=== PATIENT | male | born 1965 | race Caucasian/White ===

== ENCOUNTER 2017-08-26 02:55 | Emergency (ER) | payer OTHER ==
[~2017-08-26] VITALS: Ht 170.2 cm; Wt 63.5 kg
[2017-08-26 02:58] VITALS: BP 158/76
[2017-08-26 03:07] VITALS: BP 158/76
--- NOTE | 2017-08-26 03:09 | NUR ---
PATIENT PRESENTS TO ED WITH LUMP IN HIS CHEST FELL TODAY, COUGH , ETOH PT DENIES N/V/D; SKIN IS PINK/WARM/DRY; AAOX4 WITH EVEN AND STEADY GAIT; LUNGS CLEAR BL; HR EVEN AND REGULAR; PT DENIES ANY FEVER, SOB, OR COUGH AT THIS TIME; PATIENT STATES PAIN OF 8/10 AT THIS TIME; VSS; PATIENT POSITIONED FOR COMFORT; HOB ELEVATED; BEDRAILS UP X2; BED DOWN. ER MD MADE AWARE OF PT STATUS.
--- NOTE | 2017-08-26 03:15 | NUR ---
PATIENT LEFT WITHOUT BEING SEEN BY DR. MCCLENDON. NO FURTHER CARE PROVIDED FOR PATIENT.
== END 2017-08-26 03:15 | disposition left against medical advice (07) ==
LOC: MED 02:55
DX: R07.89 Other chest pain (principal); Z53.21 Procedure and treatment not carried out due to patient leaving prior to being seen by health care provider

== ENCOUNTER 2018-09-24 21:14 | Emergency (ER) | payer OTHER ==
[~2018-09-24] VITALS: Ht 170.2 cm; Wt 64.0 kg
[2018-09-24 21:19] VITALS: BP 167/103
--- NOTE | 2018-09-24 22:39 | NUR ---
Patient ambulated to bed 5. RN evaluating patient at bedside.
--- NOTE | 2018-09-24 22:40 | NUR ---
PT IS A 53 Y/O MALE WHO PRESENTS TO THE ED FOR MED REFILL. PT STATES THAT HE JUST GOT ON ASSISTED AND IS REQUIRING MED RX. PT REPORTS METOPROLOL, CLONIDINE AND GABAPENTIN. PT DENIES PAIN AT THIS TIME. PT DENIES CP, SOB, N/V/D. PT AWAKE AND ALERT, RR EVEN/UNLABORED. PT REPOSITIONED FOR COMFORT, BED IN LOWEST POSITION. ER MD DR. MCCLENDON NOTIFIED. WILL CONTINUE TO MONITOR. PMH---HTN
--- NOTE | 2018-09-24 22:50 | NUR ---
Patient transferred to chair E for further care. RN re-evaluating patient.
[2018-09-24 23:50] VITALS: BP 148/72
--- NOTE | 2018-09-24 23:50 | NUR ---
Patient discharged with v/s stable. Written and verbal after care instructions given and explained. Patient alert, oriented and verbalized understanding of instructions. Ambulatory with steady gait. All questions addressed prior to discharge. ID band removed. Patient advised to follow up with PMD. Rx of clonidine, metoporolol, neurontin given. Patient educated on indication of medication including possible reaction and side effects. Opportunity to ask questions provided and answered.
== END 2018-09-24 23:50 | disposition home or self-care (01) ==
LOC: MED 21:14
DX: Z76.0 Encounter for issue of repeat prescription (principal); I10 Essential (primary) hypertension
CPT/HCPCS: 99283

== ENCOUNTER 2019-03-03 01:25 | Emergency (ER) | payer OTHER ==
[~2019-03-03] VITALS: Ht 175.3 cm; Wt 63.5 kg
[2019-03-03 01:36] VITALS: BP 170/95
--- NOTE | 2019-03-03 01:36 | NUR ---
PT TAKEN TO BED 6
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
[2019-03-03 01:57] VITALS: BP 155/82
--- NOTE | 2019-03-03 01:57 | NUR ---
DISCHARGE PAPERS GIVEN TO PT. PT STATES PAIN TOLLERABLE AND ABLE TO P/U MEDICATIONS AT A LOCAL PHARMACY. AFEBRILE WITH VSS. INSTRUCTED TO F/U WITH PCP AND WHEN TO RETURN TO ER. POST-CARE INSTRUCTIONS GIVEN ON SKIN CARE. RX OF TYLENOL AND BACITRACIN GIVEN. SIDE EFFECTS EXPLAINED. PT VERBALLIZED UNDERSTANDING OF DC INSTRUCTIONS. ALL QESTIONS ANSWERED.
== END 2019-03-03 01:57 | disposition home or self-care (01) ==
LOC: MED 01:25
DX: S60.512A Abrasion of left hand, initial encounter (principal); S60.511A Abrasion of right hand, initial encounter; I10 Essential (primary) hypertension; Z88.8 Allergy status to other drugs, medicaments and biological substances; Z59.0 Homelessness; X58.XXXA Exposure to other specified factors, initial encounter; Y93.89 Activity, other specified; Y92.89 Other specified places as the place of occurrence of the external cause; Y99.8 Other external cause status
CPT/HCPCS: 99283

== ENCOUNTER 2019-05-13 11:39 | Emergency (ER) | payer OTHER ==
[~2019-05-13] VITALS: Ht 175.3 cm; Wt 61.2 kg
[2019-05-13 11:40] VITALS: BP 150/104
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
--- NOTE | 2019-05-13 12:00 | NUR ---
DR WALTER AT BEDSIDE
--- NOTE | 2019-05-13 12:01 | NUR ---
NO PD PRESENT AT THIS TIME
[2019-05-13] MEDS ORDERED: CYCLOBENZAPRINE 10 MG TAB PO ONE (12:05)
[2019-05-13] MEDS ORDERED: IBUPROFEN 600 MG TAB PO ONE (12:05)
--- NOTE | 2019-05-13 12:52 | NUR ---
PAIN 6/10 AFTER ADMINISTERING MOTRIN AND FLEXERIL
--- NOTE | 2019-05-13 13:10 | NUR ---
PT REFUSING TO LEAVE. PT STATES "I CANT WALK". INFORMED PATIENT THAT XRAY WAS UNREMARKABLE
--- NOTE | 2019-05-13 13:16 | NUR ---
PATIENT REFUSING TO LEAVE SECURITY CALLED TO ESCORT PATIENT OUT OF ER
--- NOTE | 2019-05-13 13:17 | NUR ---
PT REFUSING TO SIGN DISCHARGE PAPERS AT THIS TIME. REFUSING TO REMOVE ID BAND
--- NOTE | 2019-05-13 13:17 | NUR ---
SECURITY CALLED TO BEDSIDE. GRIFFIN AT BEDSIDE TO DISCHARGE PATIENT.
[2019-05-13 13:20] VITALS: BP 147/95
--- NOTE | 2019-05-13 13:20 | NUR ---
Patient discharged with v/s stable. Written and verbal after care instructions given and explained. PT CONTINUED TO INTERRUPT DURING DISCHARGE. DID NOT VERBALIZE UNDERSTANDING. Patient alert, oriented. Ambulatory with steady gait. Rx of NORCO, IBUPROFEN given. ESCORTED OUT OF THE BUILDING BY SECURITY
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
== END 2019-05-13 13:20 | disposition home or self-care (01) ==
LOC: MED 11:39
DX: M54.5 Low back pain (principal); G89.29 Other chronic pain; R51 Headache; R07.89 Other chest pain; I10 Essential (primary) hypertension; F11.10 Opioid abuse, uncomplicated; Z88.8 Allergy status to other drugs, medicaments and biological substances
CPT/HCPCS: 72100; 99283; Q0092

== ENCOUNTER 2019-10-13 18:41 | Emergency (ER) | payer OTHER ==
--- NOTE | 2019-10-13 18:53 | NUR ---
CALLED PT FROM LOBBY, NO ANSWER
--- NOTE | 2019-10-13 19:04 | NUR ---
PT CALLED FOR SECOND TIME IN LOBBY AND OUTSIDE, NO ANSWER.
--- NOTE | 2019-10-13 19:48 | NUR ---
PATIENT LEFT WITHOUT BEING SEEN BY DR. WALTER. NO FURTHER CARE PROVIDED FOR PATIENT.
== END 2019-10-13 18:53 | disposition left against medical advice (07) ==
LOC: MED 18:41
DX: Z76.0 Encounter for issue of repeat prescription (principal); Z53.21 Procedure and treatment not carried out due to patient leaving prior to being seen by health care provider